=== PATIENT | male | born 1945 | race Caucasian/White ===

== ENCOUNTER 2022-12-21 10:17 | Emergency (ER) | payer MEDICARE, OTHER, SELFPAY ==
[2022-12-21] VITALS (34 sets, daily range): BP systolic 107–149; BP diastolic 54–82; PULSE 67–74; RESP 15–24; O2SAT 94–99
--- NOTE | 2022-12-21 10:18 | DI.CT.S_ITS ---
PROCEDURE: CT ANGIO HEAD AND NECK INDICATIONS: Left weakness, facial droop. TECHNIQUE: After the administration of intravenous contrast, 1 mm thick sections acquired from the aortic arch through the [place]. Post-contrast 4.5 mm thick sections then re-acquired from the foramen magnum to the vertex. 3-dimensional llxjnsh-nmxydbaoo-prbvpctapz (MIP) and/or volume rendering reformats were acquired of the central intracranial vasculature and neck separately. For radiation dose reduction, the following was used: automated exposure control, adjustment of mA and/or kV according to patient size. COMPARISON: None. FINDINGS: Image quality: Excellent. BRAIN: CSF spaces: Ventricles are normal in size and shape. Basal cisterns are patent. No extra-axial fluid collections. Brain: No midline shift. No intracranial bleeds or masses. [place]-white matter interface appears intact. No suspicious enhancement. Skull and face: Calvarium and facial bones appear intact, without suspicious lesions. Orbits appear normal. Sinuses: Sinuses and mastoids are clear. HEAD CT ANGIOGRAPHY: Anterior circulation: Intracranial internal carotid arteries are normal in size and flow. Moderate atherosclerotic calcification. The flow within the paired anterior cerebral arteries is normal and symmetric. The flow within the middle cerebral arteries is normal and symmetric. The anterior communicating artery is seen. No aneurysms are seen. Posterior circulation: The left vertebral artery is dominant. There is mild calcification. Visualized portions of the vertebral arteries demonstrate normal caliber, and join to form a normal appearing basilar artery. Flow within the posterior cerebral arteries is normal and symmetric. No aneurysms are seen. NECK CT ANGIOGRAPHY: Carotid system: The great vessels demonstrate a conventional anatomy as they arise from the aortic arch. Left common carotid artery origin demonstrates moderate stenosis due to mixed calcified and noncalcified plaque. The right common carotid artery origin is patent. There is heavy calcification at the right carotid bulb extending into the ICA origin and causing a moderate to significant ICA origin stenosis. There appears to be poststenotic dilatation of the proximal ICA. Mild noncalcified plaque involving the mid right ICA causing mild stenosis. Mild calcified plaque at the left carotid bulb and several areas calcified plaque along the mid and distal left ICA without significant stenosis. Posterior circulation: The origins of the vertebral arteries both demonstrate moderate calcification. The left vertebral artery is dominant. The more superior extracranial portions of both vertebral arteries also demonstrate normal courses and calibers. They join to form a normal appearing basilar artery. Soft tissues: Visualized neck soft tissues demonstrate no suspicious abnormalities. Lung apices demonstrate moderate upper lobe emphysema and dependently layering small left pleural effusion. Median sternotomy changes are noted. Bones: No suspicious bony lesions. Visualized cervical spine demonstrates multilevel degenerative disc height loss and endplate spurring. Mild anterolisthesis C3 on four. IMPRESSION: 1. No abnormal enhancement in the brain. 2. No evidence of acute intracranial arterial occlusion, stenosis, or aneurysm. 3. Potentially hemodynamically significant calcified stenosis at the right carotid bulb and internal carotid artery origin. Carotid duplex ultrasound is recommended for further evaluation. 4. Scattered areas of mild calcified and noncalcified stenosis involving both mid and distal ICAs. Any quantitative measurements of stenosis were performed using NASCET criteria. Dictated by: Shagufta Blanco M.D. on 12/21/2022 at 9:55 Approved by: Shagufta Blanco M.D. on 12/21/2022 at 10:08
--- NOTE | 2022-12-21 10:18 | DI.CT.S_ITS ---
PROCEDURE: CT STROKE INDICATIONS: Left weakness, facial droop. TECHNIQUE: Noncontrast 4.5 mm thick angled axial sections acquired from the foramen magnum to the vertex, with coronal reformats. For radiation dose reduction, the following was used: automated exposure control, adjustment of mA and/or kV according to patient size. COMPARISON: None. FINDINGS: Image quality: Excellent. CSF spaces: Basal cisterns are patent. No extra-axial fluid collections. The ventricles are symmetric in size and shape. Brain: No intracranial bleeds or masses. There is cerebral volume loss for age, with resultant ventricular and sulcal prominence. There are periventricular and deep white matter chronic small vessel ischemic changes. There is a small focus of hypodensity the right parietal cortex near the vertex without adjacent edema. Incidental note of several scattered right hemispheric cortical punctate calcifications. There is intracranial internal carotid artery atherosclerosis. Skull and face: Calvarium and visualized facial bones appear intact, without suspicious lesions. Sinuses: Visualized sinuses and mastoids are clear. IMPRESSION: 1. No acute hemorrhage or mass effect. 2. Small area of right high parietal cortical hypodensity may be prior small infarct. No visible edema to suggest acute infarct, although early edema may not be apparent. Consider MRI. 3. Several scattered punctate calcifications are incidental and likely relate to remote, healed infection or other remote process. 4. Findings discussed with Dr. Otero in the emergency room at 09:36 [place] daylight time. This study fulfills neurological imaging criteria for inclusion or exclusion of acute stroke therapies based on available published neurological guidelines. Dictated by: Shagufta Blanco M.D. on 12/21/2022 at 9:31 Approved by: Shagufta Blanco M.D. on 12/21/2022 at 9:39
--- NOTE | 2022-12-21 10:24 | ED.NEUROSD ---
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 Patient had last known normal at 940 5:00 a.m. was sitting talking with friends when he had sudden stop in his speech, sort of drifted off to the left and had obvious left-sided weakness. Medics state that he has been alert, seems a little tired but able to answer questions. They notes complete left-sided weakness. Facial droop on the left. They note that he did have a loss of urine control while traveling here but no witnessed seizure activity or altered mental status. Patient describes little bit headache, no acute vision changes, he states he feels tired. Denies chest pain or shortness of breath no nausea or vomiting, no vertigo symptoms. States he can feel his left side but feels different. He states he can not move his left arm at all. He does note that he seems to be looking more to the right. He does state he has some trouble with speech but is able to answer questions appropriately. Patient's history was obtained from him as well as his he has had prior hip replacement, had what sounds like a pericardial window with pericarditis in 2021 in the ICU for 7 days. No prior cardiac stents or other interventions. He is had hernia repair. No known drug allergies. No tobacco, little bit alcohol occasionally, no illicit. They live in [facility] and are currently visiting an park. Patient is accompanied by his who was present in the building when the episode occurred and she correlates last known normal time of 945am. Review of Systems Review of Systems ROS Unobtainable: All systems reviewed & are unremarkable except as noted in HPI and below Exam Narrative Exam Narrative: GEN: well nourished, well appearing male, alert and oriented x 3, patient appears to be in moderate distress. HEENT: Atraumatic, pupils are equal round reactive to light, extraocular movements are intact, nares are clear, there is no conjunctival pallor. Throat is clear without any exudates, erythema, tonsillar enlargement or uvular deviation, positive for left facial droop. HEART: Regular rate and rhythm without murmur, clicks, rubs. pulses are equal in upper and lower extremities LUNGS:Lungs clear to auscultation, no wheezes, rales, crackles, chest moves symmetrically ABD:bowel sounds normal, soft, non-tender, no guarding, rebound, rigidity, no masses noted, no hepatosplenomegaly :No CVA tenderness, patient did have some urinary incontinence. MSCL: Non-tender, no muscle atrophy, patient has no movement of his left upper extremity initially, he does have some movement of his left leg. NEURO:CN 2-12 intact, sensation normal, finger nose finger test normal on right, heel wright test abnormal bilaterally. Patient does lift left leg but has some drift. Patient does clearly have some neglect to the left and has a palsy to the right. Suspect hemianopsia but patient has pretty significant palsy to the right making it difficult to assess vision. Patient has some aphasia with pictures but some of this maybe difficulty seeing the cards, patient is able to have fairly clear speech with no obvious dysarthria. Initial Vital Signs Initial Vital Signs: Vital Signs Pulse Rate 71 12/21/22 10:39 Blood Pressure 132/61 12/21/22 10:39 Pulse Oximetry 95 12/21/22 10:39 Scores NIH Stroke Scale Level of Conciousness: Alert, keenly responsive Ask month/age: Answers both questions correctly. Open/close eyes, close hand: Performs both tasks correctly Best gaze horizontal: Forced deviation or total gaze paresis not overcome Visual hawley: Complete hemianopia Facial palsy: Partial paralysis, total or near total paralysis of lower face Left arm drift: No effort against gravity Right arm drift: No drift for full 10 sec Left leg drift: Drifts down, not to bed Right leg drift: No drift for full 5 sec Limb ataxia: Present in two limbs Sensory on face/arms/legs: Mild to moderate sensory loss, can tell touch Best language: Mild to moderate, slurs some words Dysarthria: Mild to mod,some slurring Extinction or inattention: Visual, tactile, auditory, spacial or personal inattention to stimuli Total NIH Stroke scale score: 16 Course Orders Ordered: ED Orders 12/21/22 10:[address] angio head and neck Stat 12/21/22 10:33 EKG-12 Lead Stat 12/21/22 10:45 Complete Blood Count AUTO DIFF Stat Comprehensive Metabolic Panel Stat Ethanol (ETOH) Stat PTT Partial Thromboplastin Kendall Stat Prothrombin Time INR Stat Troponin & CK Cardiac Panel Stat 12/21/22 11:24 Urinalysis and Microscopic Stat Urine Drug Screen, Rapid Stat 12/21/22 11:33 COVID19 -Nasal RAPID Stat Discontinued Medications Alteplase, Recombinant (Activase) 9 mg in 9 mls @ 540 mls/hr IV NOW ONE Stop: 12/21/22 11:08 Last Infusion: 12/21/22 11:13 Dose: 0 mls/hr Documented By: Admin: 12/21/22 11:12 Dose: 540 mls/hr Documented By: LUCÍA Alteplase, Recombinant (Activase) 81 mg in 81 mls @ 81 mls/hr IV NOW ONE Stop: 12/21/22 12:06 Last Infusion: 12/21/22 12:00 Dose: 0 mls/hr Documented By: Admin: 12/21/22 11:13 Dose: 81 mls/hr Documented By: LUCÍA Tranexamic Acid (Tranexamic Acid 1,000 Mg Vial) 500 mg TOP NOW ONE Stop: 12/21/22 12:05 Last Admin: 12/21/22 12:14 Dose: 500 mg Documented By: LUCÍA Vital Signs Vital signs: Vital Signs - 8 hr 12/21/22 11:27 12/21/22 10:39 12/21/22 10:39 Pulse Rate 69 71 Respiratory Rate 18 Blood Pressure 115/58 L 132/61 Pulse Oximetry 99 95 Oxygen Delivery Method Room Air 12/21/22 10:41 12/21/22 10:41 12/21/22 10:46 Pulse Rate 68 67 Respiratory Rate 17 18 Blood Pressure 139/63 Pulse Oximetry 95 94 Oxygen Delivery Method 12/21/22 10:46 12/21/22 10:51 12/21/22 10:51 Pulse Rate 73 Respiratory Rate 19 Blood Pressure 112/82 138/63 Pulse Oximetry Oxygen Delivery Method 12/21/22 10:55 12/21/22 10:55 12/21/22 11:00 Pulse Rate 71 Respiratory Rate 22 Blood Pressure 126/62 129/61 Pulse Oximetry 96 Oxygen Delivery Method 12/21/22 11:00 12/21/22 11:05 12/21/22 11:05 Pulse Rate 73 72 Respiratory Rate 23 22 Blood Pressure 125/59 L Pulse Oximetry 96 94 Oxygen Delivery Method 12/21/22 11:08 12/21/22 11:08 12/21/22 11:09 Pulse Rate 70 70 Respiratory Rate 21 22 Blood Pressure 133/55 L Pulse Oximetry 95 Oxygen Delivery Method 12/21/22 11:09 12/21/22 11:12 12/21/22 11:12 Pulse Rate 70 Respiratory Rate 18 Blood Pressure 124/62 128/61 Pulse Oximetry Oxygen Delivery Method 12/21/22 11:15 12/21/22 11:15 12/21/22 11:17 Pulse Rate 72 72 Respiratory Rate 18 23 Blood Pressure 118/57 L Pulse Oximetry 96 Oxygen Delivery Method 12/21/22 11:17 12/21/22 11:18 12/21/22 11:18 Pulse Rate 72 Respiratory Rate 24 Blood Pressure 123/59 L 123/57 L Pulse Oximetry 95 Oxygen Delivery Method 12/21/22 11:21 12/21/22 11:21 12/21/22 11:24 Pulse Rate 71 70 Respiratory Rate 15 18 Blood Pressure 127/60 Pulse Oximetry 98 98 Oxygen Delivery Method 12/21/22 11:24 12/21/22 11:27 12/21/22 11:27 Pulse Rate 69 Respiratory Rate 18 Blood Pressure 125/59 L 115/58 L Pulse Oximetry 97 Oxygen Delivery Method 12/21/22 11:30 12/21/22 11:31 12/21/22 11:31 Pulse Rate 72 72 Respiratory Rate 21 17 Blood Pressure 124/59 L Pulse Oximetry 98 97 Oxygen Delivery Method 12/21/22 11:33 12/21/22 11:33 12/21/22 11:36 Pulse Rate 72 70 Respiratory Rate 17 23 Blood Pressure 142/62 H Pulse Oximetry 98 98 Oxygen Delivery Method 12/21/22 11:36 12/21/22 11:39 12/21/22 11:39 Pulse Rate 69 Respiratory Rate 22 Blood Pressure 127/59 L 122/58 L Pulse Oximetry 98 Oxygen Delivery Method 12/21/22 11:42 12/21/22 11:42 12/21/22 11:45 Pulse Rate 69 70 Respiratory Rate 20 22 Blood Pressure 129/63 Pulse Oximetry 97 97 Oxygen Delivery Method 12/21/22 11:45 12/21/22 11:48 12/21/22 11:48 Pulse Rate 70 Respiratory Rate 19 Blood Pressure 122/60 129/60 Pulse Oximetry 97 Oxygen Delivery Method 12/21/22 11:51 12/21/22 11:51 Pulse Rate 71 Respiratory Rate 17 Blood Pressure 133/64 Pulse Oximetry 98 Oxygen Delivery Method MDM - Neuro Symptoms/Deficit Lab Data 12/21/22 10:45 12/21/22 10:45 Labs: Lab Results 12/21/22 12/21/22 12/21/22 Range/Units 10:45 10:45 10:45 WBC 7.6 (4.5-11.0) X10^3/uL RBC 4.69 (4.5-5.9) X10^6/uL Hgb 13.9 (13.5-17.5) g/dL Hct 40.6 L (41-53) % MCV 86.7 (80-100) fL MCH 29.6 (26-34) PG MCHC 34.1 (30-36) % RDW 13.9 (11.6-14.8) % Plt Count 237 (150-400) X10^3/uL Neut % (Auto) 73.7 (50-75) % Lymph % (Auto) 9.3 L (25-40) % [place] % (Auto) 9.8 (3-14) % Eos % (Auto) 6.0 H (2-4) % Baso % (Auto) 1.2 (0-2) % Neut # (Auto) 5600 (5868-8111) /uL Lymph # (Auto) 700 L (3088-2893) /uL [place] # (Auto) 700 (0-900) /uL Eos # (Auto) 500 H (0-450) /uL Baso # (Auto) 100 (0-100) /uL PT 13.9 H (10.1-12.7) SECONDS INR 1.2 (0.9-1.3) APTT 35 (26-36) SECONDS Sodium 138 (137-145) mmol/L Potassium 3.7 (3.4-5.1) mmol/L Chloride 101 (98-107) mmol/L Carbon Dioxide 28 (22-32) mmol/L BUN 16 (9-20) mg/dL Creatinine 0.77 (0.66-1.25) mg/dL Estimated GFR > 60 (>60) mL/min BUN/Creatinine Ratio 20.8 (6-22) Glucose 148 H (80-110) mg/dL Calcium 8.7 (8.4-10.2) mg/dL Total Bilirubin 0.7 (0.2-1.3) mg/dL AST 32 (17-59) IU/L ALT 32 (<50) IU/L Alkaline Phosphatase 130 H (38-126) U/L Total Creatine Kinase 68 (55-170) U/L Troponin I < 0.012 (0.01-0.034) ng/mL Total Protein 6.9 (6.3-8.2) g/dL Albumin 3.8 (3.5-5.0) g/dL Globulin 3.1 (1.7-4.1) g/dL Albumin/Globulin Ratio 1.2 (1.0-2.8) Urine Color Urine Appearance Urine pH (4.5-8.0) Ur Specific [place] (1.000-1.035) Urine Protein (Negative) Urine Glucose (UA) (Negative) g/dL Urine Ketones (NEGATIVE) Urine Occult Blood (Negative) Urine Nitrate (Negative) Urine Bilirubin (NEGATIVE) Urine Urobilinogen (0.2) E.U./dL Ur Leukocyte Esterase (NEGATIVE) Urine RBC (0-5/HPF) Urine WBC (0-5/HPF) Ur Squamous Epith Cells (0-5/HPF) Urine Bacteria (None) Ur Culture Indicated? Micro UA Comment U Opiates 300ng/mL cut (Negative) Ur Oxycodone Screen (Negative) Urine Methadone Screen (Negative) Ur Barbiturates Screen (Negative) U Tricyclic Antidepress (Negative) Ur Phencyclidine Scrn (Negative) Ur Amphetamines Screen (Negative) U Methamphetamines Scrn (Negative) Ur MDMA Scrn (Ecstasy) (Negative) U Benzodiazepines Scrn (Negative) Urine Cocaine Screen (Negative) U Marijuana (THC) Screen (Negative) Ethyl Alcohol < 10 ( - 10) mg/dL SARS-CoV-2 (PCR) (Negative) 12/21/22 12/21/22 12/21/22 Range/Units 11:24 11:24 11:33 WBC (4.5-11.0) X10^3/uL RBC (4.5-5.9) X10^6/uL Hgb (13.5-17.5) g/dL Hct (41-53) % MCV (80-100) fL MCH (26-34) PG MCHC (30-36) % RDW (11.6-14.8) % Plt Count (150-400) X10^3/uL Neut % (Auto) (50-75) % Lymph % (Auto) (25-40) % [place] % (Auto) (3-14) % Eos % (Auto) (2-4) % Baso % (Auto) (0-2) % Neut # (Auto) (7748-6884) /uL Lymph # (Auto) (3476-7635) /uL [place] # (Auto) (0-900) /uL Eos # (Auto) (0-450) /uL Baso # (Auto) (0-100) /uL PT (10.1-12.7) SECONDS INR (0.9-1.3) APTT (26-36) SECONDS Sodium (137-145) mmol/L Potassium (3.4-5.1) mmol/L Chloride (98-107) mmol/L Carbon Dioxide (22-32) mmol/L BUN (9-20) mg/dL Creatinine (0.66-1.25) mg/dL Estimated GFR (>60) mL/min BUN/Creatinine Ratio (6-22) Glucose (80-110) mg/dL Calcium (8.4-10.2) mg/dL Total Bilirubin (0.2-1.3) mg/dL AST (17-59) IU/L ALT (<50) IU/L Alkaline Phosphatase (38-126) U/L Total Creatine Kinase (55-170) U/L Troponin I (0.01-0.034) ng/mL Total Protein (6.3-8.2) g/dL Albumin (3.5-5.0) g/dL Globulin (1.7-4.1) g/dL Albumin/Globulin Ratio (1.0-2.8) Urine Color Yellow Urine Appearance Clear Urine pH 7.0 (4.5-8.0) Ur Specific [place] 1.010 (1.000-1.035) Urine Protein Negative (Negative) Urine Glucose (UA) Negative (Negative) g/dL Urine Ketones Negative (NEGATIVE) Urine Occult Blood Negative (Negative) Urine Nitrate Negative (Negative) Urine Bilirubin Negative (NEGATIVE) Urine Urobilinogen 0.2 (0.2) E.U./dL Ur Leukocyte Esterase Negative (NEGATIVE) Urine RBC None seen (0-5/HPF) Urine WBC None seen (0-5/HPF) Ur Squamous Epith Cells None seen (0-5/HPF) Urine Bacteria None seen (None) Ur Culture Indicated? Cult not indicated Micro UA Comment Microscopic normal U Opiates 300ng/mL cut Negative (Negative) Ur Oxycodone Screen Negative (Negative) Urine Methadone Screen Negative (Negative) Ur Barbiturates Screen Negative (Negative) U Tricyclic Antidepress Negative (Negative) Ur Phencyclidine Scrn Negative (Negative) Ur Amphetamines Screen Negative (Negative) U Methamphetamines Scrn Negative (Negative) Ur MDMA Scrn (Ecstasy) Negative (Negative) U Benzodiazepines Scrn Negative (Negative) Urine Cocaine Screen Negative (Negative) U Marijuana (THC) Screen Negative (Negative) Ethyl Alcohol ( - 10) mg/dL SARS-CoV-2 (PCR) Negative (Negative) Point of Care Testing Glucose POC [address] scan - head: Radiologist's Impression: no acute change. Called by Dr. Blanco to myself. CTA - brain/neck: Radiologist's Impression: Jose Stafford??77??M??1945 ? Allergy/Adv: Not Recorded Close Head/Neck CTA (Signed) Shagufta Blanco - 12/21/[address] (Signed) Shagufta Blanco - 12/21/22 [place] [address] CT Scan Report Signed Patient: Jose Stafford MR#: [id number] : 1945 Acct:[id number] Age/Sex: 77 / M Date of Service: 12/21/22 Loc: ED Accession Number: [id number] ?? Procedure: CT angio head and neck Ordering Provider: Prachi Otero D.O. PROCEDURE:? CT ANGIO HEAD AND NECK ? INDICATIONS:? Left weakness, facial droop. TECHNIQUE:? After the administration of intravenous contrast, 1 mm thick sections acquired from the aortic arch through the [place] of [place].? Post-contrast 4.5 mm thick sections then re-acquired from the foramen magnum to the vertex.? 3-dimensional hyqwxef-hvndyedqf-rqkgbhvmup (MIP) and/or volume rendering reformats were acquired of the central intracranial vasculature and neck separately. For radiation dose reduction, the following was used:? automated exposure control, adjustment of mA and/or kV according to patient size.? ? COMPARISON:? None. ? FINDINGS:? Image quality:? Excellent.? ? BRAIN:? CSF spaces:? Ventricles are normal in size and shape.? Basal cisterns are patent.? No extra-axial fluid collections.? ? Brain:? No midline shift.? No intracranial bleeds or masses.? [place]-white matter interface appears intact.? No suspicious enhancement. ? Skull and face:? Calvarium and facial bones appear intact, without suspicious lesions.? Orbits appear normal.? ? Sinuses:? Sinuses and mastoids are clear.? ? HEAD CT ANGIOGRAPHY:? Anterior circulation:? Intracranial internal carotid arteries are normal in size and flow.? Moderate atherosclerotic calcification.? The flow within the paired anterior cerebral arteries is normal and symmetric.? The flow within the middle cerebral arteries is normal and symmetric.? The anterior communicating artery is seen.? No aneurysms are seen.? ? Posterior circulation:? The left vertebral artery is dominant.? There is mild calcification.? Visualized portions of the vertebral arteries demonstrate normal caliber, and join to form a normal appearing basilar artery.? Flow within the posterior cerebral arteries is normal and symmetric.? No aneurysms are seen.? ? NECK CT ANGIOGRAPHY:? Carotid system:? The great vessels demonstrate a conventional anatomy as they arise from the aortic arch.? Left common carotid artery origin demonstrates moderate stenosis due to mixed calcified and noncalcified plaque.? The right common carotid artery origin is patent.? There is heavy calcification at the right carotid bulb extending into the ICA origin and causing a moderate to significant ICA origin stenosis.? There appears to be poststenotic dilatation of the proximal ICA.? Mild noncalcified plaque involving the mid right ICA causing mild stenosis.? Mild calcified plaque at the left carotid bulb and several areas calcified plaque along the mid and distal left ICA without significant stenosis. ? ? Posterior circulation:? The origins of the vertebral arteries both demonstrate moderate calcification.? The left vertebral artery is dominant.? The more superior extracranial portions of both vertebral arteries also demonstrate normal courses and calibers.? They join to form a normal appearing basilar artery.? ? Soft tissues:? Visualized neck soft tissues demonstrate no suspicious abnormalities.? Lung apices demonstrate moderate upper lobe emphysema and dependently layering small left pleural effusion.? Median sternotomy changes are noted. ? Bones:? No suspicious bony lesions.? Visualized cervical spine demonstrates multilevel degenerative disc height loss and endplate spurring.? Mild anterolisthesis C3 on four. ? ? IMPRESSION:? ? 1. No abnormal enhancement in the brain. ? 2. No evidence of acute intracranial arterial occlusion, stenosis, or aneurysm. ? 3. Potentially hemodynamically significant calcified stenosis at the right carotid bulb and internal carotid artery origin.? Carotid duplex ultrasound is recommended for further evaluation. ? 4. Scattered areas of mild calcified and noncalcified stenosis involving both mid and distal ICAs.? ? Any quantitative measurements of stenosis were performed using NASCET criteria.? ? ? Dictated by: Shagufta Blanco M.D. on 12/21/2022 at 9:55 ? ? Approved by: Shagufta Blanco M.D. on 12/21/2022 at 10:08?? ECG Data Attestation: I personally reviewed and interpreted this ECG as follows: Interpretation: Sinus rhythm first-degree AV block. Rate of 68 CT 236 QRS of 112 and QTC of 438. No acute ST elevation depression noted. MDM Narrative Medical decision making narrative: This is a 77-year-old male who presents with complaint of left-sided weakness/facial droop, palsy appears to have had a stroke with NIH of 15. Initial noncontrast CT is negative, had neurology consultation and evaluation and tPA was recommended. Patient has been having some improvement but neurology notes on CT angio that there is some blockage on the right and does still recommend tPA. Discussed risks versus benefits with patient as well as family they were both at bedside the neurologist did this over tele doc. patient and family elected to pursue tPA. Patient's NIH this point is 6 but still has some pretty significant changes. Patient is on aspirin or other thinners patient is not hypertensive. CBC resulted, coags CMP are still pendin. CT angio is still pending from our local radiology read but was read by Neurology. Patient's labs result glucose 148, troponin, LFTs sodium all negative, coags appropriate, UA, UDS and ETOH are negative. Covid swab is negative. TPA was given. After consultation with Neurology, recommendations from Neurology and Neurology reviewed with patient, family. Patient family elect pursue after discussion of risks versus benefits and nausea potential bleed. Dr. Elizondo for neurology accepts for transfer status post tPA for stroke. Plan for transfer via airlift. Patient developed some gingival bleeding appears to be more from the front anterior teeth. Patient's bolus at almost completed so was stopped. Patient had some TXA topically applied to the area. Bleeding is slow but present. Airlift arrived and patient transported. Critical Care Time Critical Care Time Critical Care Time: Yes Total Critical Care Time: 40 Attestation: The high probability of a clinically significant, sudden or life threatening deterioration of the [] system(s) required my full and direct attention, intervention and personal management. The aggregate critical care time was [] minutes. This time is in addition to time spent performing reported procedures but includes the following: [x] Data Review and interpretation [x] Patient assessment and monitoring of vital signs [x] Documentation [x] Medication orders and management Discharge Plan Departure Patient Disposition: [facility] Clinical Impression: Acute CVA (cerebrovascular accident), Bleeding gums
[2022-12-21 10:56] LABS: Add Manual Diff / Slide Review NO; Basophils Absolute Auto 100 /uL (0-100); Basophils Percent Auto 1.2 % (0-2); Eosinophils Absolute Auto 500 /uL (0-450); Hematocrit 40.6 % (41-53); Hemoglobin 13.9 g/dL (13.5-17.5); Lymphocytes Absolute Auto 700 /uL (1100-4500); Lymphocytes Percent Auto 9.3 % (25-40); Mean Corpuscular HGB Conc 34.1 % (30-36); Mean Corpuscular Hemoglobin 29.6 PG (26-34); Mean Corpuscular Volume 86.7 fL (80-100); Monocytes Absolute Auto 700 /uL (0-900); Monocytes Percent Auto 9.8 % (3-14); Neutrophils Absolute Auto 5600 /uL (1500-7000); Neutrophils Percent Auto 73.7 % (50-75); Platelet Count 237 X10^3/uL (150-400); Red Blood Cell Count 4.69 X10^6/uL (4.5-5.9); Red Cell Distribution Width 13.9 % (11.6-14.8); White Blood Cell Count 7.6 X10^3/uL (4.5-11.0)
--- NOTE | 2022-12-21 11:02 | PC.NURSE ---
Original NIH 15 on arrival. 1 hr later NIH improved to 9. Improvement in L sided drift. Pt had no movement on arrival and by 11am L arm drifts down not to bed. Tele doc initiated. Neuro continues to discuss tPa being an option for patient's care. patient and agreeable to tPa administration.
[2022-12-21] MEDS: ALTEPLASE 9 MG/9 ML VIAL 540 MG IV (11:12)
[2022-12-21 11:13] LABS: INR 1.2 (0.9-1.3); Prothrombin Time 13.9 SECONDS (10.1-12.7)
[2022-12-21] MEDS: ALTEPLASE 81 MG/81 ML VIAL IV (11:13)
[2022-12-21 11:16] LABS: Alanine Aminotransferase 32 IU/L (<50); Albumin 3.8 g/dL (3.5-5.0); Albumin Globulin Ratio 1.2 (1.0-2.8); Alkaline Phosphatase 130 U/L (38-126); Aspartate Aminotransferase 32 IU/L (17-59); BUN Creatinine Ratio 20.8 (6-22); Bilirubin Total 0.7 mg/dL (0.2-1.3); Blood Urea Nitrogen 16 mg/dL (9-20); Calcium 8.7 mg/dL (8.4-10.2); Carbon Dioxide 28 mmol/L (22-32); Chloride 101 mmol/L (98-107); Creatine Kinase 68 U/L (55-170); Estimated Glomerular Filt Rate > 60 mL/min (>60); Ethanol (ETOH) < 10 mg/dL; Globulin 3.1 g/dL (1.7-4.1); Glucose 148 mg/dL (80-110); HEMOLYSIS < 15 (0-50); PTT Partial Thromboplastin Tim 35 SECONDS (26-36); Potassium 3.7 mmol/L (3.4-5.1); Sodium 138 mmol/L (137-145); Total Protein 6.9 g/dL (6.3-8.2)
[2022-12-21 11:26] LABS: Troponin I < 0.012 ng/mL (0.01-0.034)
--- NOTE | 2022-12-21 11:41 | PC.NURSE ---
Pt arrives EMS 1020 with stroke-like symptoms, pt taken to CT immediately, arrives with two 20g IV however left IV infiltrated. New L-wrist 20g IV inserted, labs drawn. Telestroke set up in room prior to pt arrival. Physician at bedside with 2 RN and transportation technician. [facility] performed. Telestroke neurologist on monitor, TPA started at 1112 for bolus and 1113 for drip. Neuro checks every 5 minutes, monitor set to record every 3 minutes.
[2022-12-21 11:52] LABS: Appearance Urine UA CLEAR; Bilirubin Urine UA NEGATIVE (NEGATIVE); Color Urine UA YELLOW; Glucose Urine UA NEGATIVE (Negative); Ketones Urine UA NEGATIVE (NEGATIVE); Leukocyte Esterase Urine UA NEGATIVE (NEGATIVE); Nitrite Urine UA NEGATIVE (Negative); Occult Blood Urine UA NEGATIVE (Negative); Protein Urine UA NEGATIVE (Negative); Urobilinogen Urine UA 0.2 E.U./dL (0.2)
--- NOTE | 2022-12-21 11:53 | PC.NURSE ---
[employer] insurance membership obtained. receipt in chart and copy in patients transfer packet and copy with
[2022-12-21 11:58] LABS: UR Morphine/Opiate cutoff 300 Negative (Negative); Ur Creatinine Normal (Normal); Ur Specific Gravity Normal (Normal); Urine Amphetamines Negative (Negative); Urine Barbiturates Negative (Negative); Urine Benzodiazepines Negative (Negative); Urine Cocaine Negative (Negative); Urine MDMA Negative (Negative); Urine Methadone Negative (Negative); Urine Methamphetamines Negative (Negative); Urine Oxycodone Negative (Negative); Urine Phencyclidine Negative (Negative); Urine Tetrahydrocannabinol Negative (Negative); Urine Tricyclic Antidepressant Negative (Negative); Urine pH Normal (Normal)
[2022-12-21 12:01] LABS: COVID19 -Nasal RAPID Negative (Negative)
[2022-12-21 12:02] LABS: Bacteria Urine None Seen; Culture Indicated Urine Cult Not Indicated; RBC Urine None Seen (0-5/HPF); Squamous Epithelial Cell Urine None Seen (0-5/HPF); Urine Comments Microscopic Normal; WBC Urine None Seen (0-5/HPF)
--- NOTE | 2022-12-21 12:10 | PC.NURSE ---
TPA stopped at 1200 due to lower gum gingival bleeding, physician aware. Pt received 60.5 mg of TPA. TXA immediately ordered and applied with gauze to the lower gum to lessen bleeding.
[2022-12-21] MEDS: TRANEXAMIC ACID 1,000 MG VIAL 500 MG TOP (12:14)
--- NOTE | 2022-12-21 12:30 | PC.NURSE ---
[facility] arrived 12p, report given @ 1215. Pt NIH status changed from 9-10 to 12-13 at roughly 1210/1215. Physician advised and witnessed by [facility] RN. Pts left arm became limp, unable to lift at time of departure. [facility] left the department at 1230.
== END 2022-12-21 12:30 | disposition short-term general hospital (02) ==
PROVIDERS: Emergency Provider Emergency Medicine
DX: I63.9 Cerebral infarction, unspecified (principal); K06.8 Other specified disorders of gingiva and edentulous alveolar ridge; R29.818 Other symptoms and signs involving the nervous system; R29.716 NIHSS score 16; Z20.822 Contact with and (suspected) exposure to COVID-19
CPT/HCPCS: 36415; 70450; 70496; 70498; 80053; 80305; 80320; 81001; 82550; 82962; 84484; 85025; 85610; 85730; 87635; 93005; 96365; 99285; 99291; 99292; C9803; Q3014; J2997